=== PATIENT | male | born 1990 | race Caucasian/White ===

== ENCOUNTER 2016-11-13 09:31 | Inpatient (IN) | payer OTHER ==
[~2016-11-13] VITALS: Ht 180.3 cm; Wt 80.5 kg
--- NOTE | ~2016-11-13 | TXPLANREV ---
"PATIENT: TYLER BELL | | [facility] UNIT #: [id number] | [address] AGE/SEX: 26 M : 86 | [address] | [place] [address] ADMIT/REG DATE: 11/13/16 | [facility] ADTC | Treatment Plan/Staffing Review Date: 11/28/16 Treatment plan was reviewed and determined appropriate as written: Yes Treatment plan was reviewed and the following changes/addition/deletions are necessary: Client is to continue working on treatment plan assignments. He is working on feelings letters. Discharge plans were reviewed and determined appropriate as previously documented: No Discharge plans were reviewed and determined to be as follows: Client has signed releases to both the [facility] and the [facility]. He will screen with them this or next week, and will be recommended to attend AA/NA meetings, as well as to get and call a sponsor on a regular basis. Other pertinent issues discussed during this staffing review include: None at this time. Staff Present: Sebastian Carrillo PRIMARY COUNSELOR: MAURISIO Juares Client Signature Counselor Signature Date Time "
--- NOTE | ~2016-11-13 | INDIVTXPLN ---
"PATIENT: TYLER BELL | | [facility] UNIT #: [id number] | [address] AGE/SEX: 26 M : 86 | [address] | [place] [address] ADMIT/REG DATE: 11/13/16 | [facility] | Individualized Treatment Plan Date: 11/29/16 Problem Statement/Issue Identified: Client harbors long standing resentments and will benefit from learning how to let them go, and find positivity in things. Goal: Client will learn how to identify resentments, hurts and fears from his life, and learn how to let go of resentments and find the positive in things. Objectives/Activities to achieve goal: 1. Client is to make a list of 10 greatest hurts, fears or losses, and process them with counselor. Due Date:12/05/16 Complete: Incomplete: 2. Client is to find one positive thing out of each of the events on his list and process them with counselor. Due Date:12/05/16 Complete: Incomplete: 3. Client is to complete the Ending Resentments packet and process it with counselor. Due Date:12/05/16 Complete: Incomplete: Client signature Date Counselor signature Date Outcome/Measurement of Progress Towards Goal: Counselor's signature Date "
--- NOTE | ~2016-11-13 | CLPRLASSUM ---
PATIENT: TYLER BELL | | [facility] UNIT #: [id number] | [address] AGE/SEX: 26 M : 86 | [address] | [place] [address] ADMIT/REG DATE: 11/13/16 | ROOM: [facility] LOC: ADTC | ADTC | Client Problem List/Assessment Summary Date: 11/14/16 Problems identified by the client: Client reported he got into legal problems and was court ordered to come to treatment. Problems identified by significant others: Client does not want any family contacted at this time. Client's Strengths: Client identified his strengths as: He is independent, intelligent, committed and caring. Problem List: Code: T Client continues to use alcohol &/or drugs despite ongoing negative consequences. Code: T Client does not "reach-out to others for help" and instead resumes using alcohol &/or drugs. Code: T Client has learned to deny or stuff feelings; needs to learn to identify and process feelings with safe people to acquire the necessary skills to maintain prison sobriety. Code: T Client needs to identify relapse warning signs and develop a plan to deal with them as they arise. Code: T Client needs to address criminal attitudes and beliefs which leads to substance abuse and crimes. Code Parson: T: to be addressed during course of treatment O: problem noted, expected to resolve itself with abstinence--specific tx plan not required R: problem noted, will be referred upon discharge PRIMARY COUNSELOR: MAURISIO Juares
--- NOTE | ~2016-11-13 | INDIVTXPLN ---
"PATIENT: TYLER BELL | | [facility] UNIT #: [id number] | [address] AGE/SEX: 26 M : 86 | [address] | [place] [address] ADMIT/REG DATE: 11/13/16 | [facility] ADTC | Individualized Treatment Plan Date: 11/16/16 Problem Statement/Issue Identified: Client needs to address criminal attitudes and beliefs which leads to substance abuse and crimes. Goal: Client will learn how to take a look at his criminal thinking and actions, and then learn how to make positive changes in his life. Objectives/Activities to achieve goal: 1. Client is to complete The Con Game and process it with counselor. Due Date:11/23/16 Complete: Incomplete: 2. Client is to complete the My Change Plan packet and process it with counselor. Due Date:11/23/16 Complete: Incomplete: Client signature Date Counselor signature Date Outcome/Measurement of Progress Towards Goal: Counselor's signature Date "
--- NOTE | ~2016-11-13 | INDIVTXPLN ---
"PATIENT: TYLER BELL | | [facility] UNIT #: [id number] | [address] AGE/SEX: 26 M : 86 | [address] | [place] [address] ADMIT/REG DATE: 11/13/16 | ROOM: [facility] LOC: ADTC | ADTC | Individualized Treatment Plan Date: 11/14/16 Problem Statement/Issue Identified: Client continues to use alcohol &/or drugs despite ongoing negative consequences, and he did not reach out to anyone in recovery, so continued to drink/use. Goal: Client will learn how to identify negative consequences of his addiction, attend AA/NA meetings and meet men in recovery. Objectives/Activities to achieve goal: 1. Client is to complete the How to Get Started packet, process it with counselor and selected pages in group. Due Date:11/17/16 Complete: Incomplete: 2. Client is to complete Step 1, process it with counselor and selected pages in group. Due Date:11/21/16 Complete: Incomplete: 3. Client is to attend AA/NA meetings, ask for and get at least 5 names and numbers of men in recovery, and share that list with counselor. Due Date:Ongoing Complete: Incomplete: Client signature Date Counselor signature Date Outcome/Measurement of Progress Towards Goal: Counselor's signature Date "
--- NOTE | ~2016-11-13 | TXPLANREV ---
"PATIENT: TYLER BELL | | [facility] UNIT #: [id number] | [address] AGE/SEX: 26 M : 86 | [address] | [place] [address] ADMIT/REG DATE: 11/13/16 | [facility] | Treatment Plan/Staffing Review Date: 11/21/16 Treatment plan was reviewed and determined appropriate as written: Yes Treatment plan was reviewed and the following changes/addition/deletions are necessary: Client is to continue working on treatment plan assignments. He is finishing up with the Con Game and My Change Plan and will begin writing feelings letters. Discharge plans were reviewed and determined appropriate as previously documented: No Discharge plans were reviewed and determined to be as follows: Client is hoping to get into drug court, so will either continue in outpatient treatment for aftercare, or he may be recommended to go to sober living. Nothing has been staffed or decided, as of yet, other than to attend AA/NA meetings, as well as to get and call a sponsor on a regular basis. Other pertinent issues discussed during this staffing review include: None at this time. Staff Present: Ruthie Carrillo PRIMARY COUNSELOR: MAURISIO Juares Client Signature Counselor Signature Date Time "
--- NOTE | ~2016-11-13 | INDIVTXPLN ---
"PATIENT: TYLER BELL | | [facility] UNIT #: [id number] | [address] AGE/SEX: 26 M : 86 | [address] | [place] [address] ADMIT/REG DATE: 11/13/16 | [facility]: [facility] LOC: ADTC | ADTC | Individualized Treatment Plan Date: 12/05/16 Problem Statement/Issue Identified: Client needs to identify relapse warning signs and develop a plan to deal with them as they arise. Goal: Client will learn to identify relapse triggers and make a plan of how to avoid them. Objectives/Activities to achieve goal: 1. Client is to complete the Relapse Prevention packet and process it with counselor. Due Date:12/13/16 Complete: Incomplete: Client signature Date Counselor signature Date Outcome/Measurement of Progress Towards Goal: Counselor's signature Date "
--- NOTE | ~2016-11-13 | RESCARESUM ---
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 Discharge Diagnosis: Same Goals Achieved: Tyler worked on several things, including step 1, identifying negative consequences of his addiction, gained insight to the disease concept, learned more about himself, worked on feelings and letting go of resentments, making positive changes in his life, and relapse prevention. Continued Obstacles to Sobriety/Relapse Issues: He identified old people, places and things, and not going to AA/NA meetings, not getting into the [facility], not getting a sponsor, and not learning how to work a strong program of recovery. Family Issues Addressed: Tyler worked thru past resentments and wrote and processed feelings letters to various family members. Y Individual Therapy Y Group Therapy Y Educational Series on Substance Abuse N Parents/Significant Others Attended Family Program N Acute Medical Problems During the Course of Treatment N Transferred to Hospital During the Course of Treatment Y Accepting of Substance Abuse Problem N Non-accepting of Substance Abuse Problem N Required Psychological or Psychiatric Consultation During the Course of Treatment Completed AA Step # 1 During This Level of Care Significant Incidences During Treatment: None Reason For Discharge: Y Completed Residential TX Goals and Ready For Next Level of Care N Left Tx Against Medical Advice/Treatment Goals Not Complete N Completed Residential Tx Goals But Refusing Continuing Care Recommendations N Discharged Due to Noncompliance/Treatment Goals not Completed PATIENT: TYLER BELL | | [facility] UNIT #: [id number] | [address] AGE/SEX: 26 M : 86 | [address] | [place] [address] ADMIT/REG DATE: 11/13/16 | ROOM: [facility] LOC: ADTC | ADTC | Summary of Residential Care N Discharged Earlier Than Planned Due to: Continuing Care Plan/Recommendations: N Intensive Partial Care Y Sponsor N Partial Care Y AA Meetings/NA Meetings N Outpatient N Co-dependency Services N Therapeutic Community Y [facility] [address] N Mental Health Therapy N Marriage Counseling N Other Specific Continuing Care Plan: It is recommended that Tyler go directly to the [facility] when they have an opening, follow all rules and regulations of both the [facility] and drug court, begin attending AA/NA meetings on a regular basis and learn how to work a strong program of recovery. PRIMARY COUNSELOR: MAURISIO Juares"
--- NOTE | ~2016-11-13 | TXPLANREV ---
"PATIENT: TYLER BELL | | [facility] UNIT #: [id number] | [address] AGE/SEX: 26 M : 86 | [address] | [place] [address] ADMIT/REG DATE: 11/13/16 | [facility] | Treatment Plan/Staffing Review Date: 12/12/16 Treatment plan was reviewed and determined appropriate as written: Yes Treatment plan was reviewed and the following changes/addition/deletions are necessary: Client is to continue working on Discharge plans were reviewed and determined appropriate as previously documented: No Discharge plans were reviewed and determined to be as follows: Client is trying to get into the [facility], and will be placed on their waiting list. He is to call them on a weekly basis, as well as to provide them with his phone number, so they can contact him, if an opening happens. He will also be recommended to attend AA/NA meetings, as well as to get and call a sponsor on a regular basis. Other pertinent issues discussed during this staffing review include: None at this time. Staff Present: Charity Irving PRIMARY COUNSELOR: MAURISIO Juares Client Signature Counselor Signature Date Time "
--- NOTE | ~2016-11-13 | INDIVTXPLN ---
"PATIENT: TYLER BELL | | [facility] UNIT #: [id number] | [address] AGE/SEX: 26 M : 86 | [address] | [place] [address] ADMIT/REG DATE: 11/13/16 | ROOM: [facility] LOC: ADTC | ADTC | Individualized Treatment Plan Date: 11/21/16 Problem Statement/Issue Identified: Client has learned to deny or stuff feelings; needs to learn to identify and process feelings in a clean/sober manner. Goal: Client will learn how to identify and express feelings in a healthy, clean/sober manner. Objectives/Activities to achieve goal: 1. Client is to write his children a feelings letter, each separately, and process them with counselor. Due Date:11/27/16 Complete: Incomplete: 2. Client is to write his kids' Mom a letter, and process it with counselor. Due Date:11/27/16 Complete: Incomplete: 3. Client is to write his parents and sister, each separately, and process them with counselor. Due Date:11/27/16 Complete: Incomplete: Client signature Date Counselor signature Date Outcome/Measurement of Progress Towards Goal: Counselor's signature Date "
--- NOTE | ~2016-11-13 | TXPLANREV ---
"PATIENT: TYLER BELL | | [facility] UNIT #: [id number] | [address] AGE/SEX: 26 M : 86 | [address] | [place] [address] ADMIT/REG DATE: 11/13/16 | ROOM: [facility] LOC: ADTC | ADTC | Treatment Plan/Staffing Review Date: 12/05/16 Treatment plan was reviewed and determined appropriate as written: Yes Treatment plan was reviewed and the following changes/addition/deletions are necessary: Client is to continue working on treatment plan assignments. He will begin working on relapse prevention. Discharge plans were reviewed and determined appropriate as previously documented: No Discharge plans were reviewed and determined to be as follows: Client has applied to both the [facility] and the [facility]. We will contact them to determine if either has an opening. Other pertinent issues discussed during this staffing review include: None at this time. Staff Present: Phuong Irving PRIMARY COUNSELOR: MAURISIO Juares Client Signature Counselor Signature Date Time "
--- NOTE | 2016-11-13 13:36 | NUR ---
ADMISSION NOTE Rights/Responsibilities: Copy given and explained to client. Signed and accepted by client. Client oriented to physical lay out of the ADTC unit, given Big Book and admission packet. A [place] was assigned.Malik Client is a 25yr old single male. Brought to tx by friend, came from long term in [place], [place] where he lives. He was in long term for 90 days. DOC, meth, last used 08/06/16, seven grams daily. Allergies, none. Meds: Nurse has list. No family participation. Was searched no contraband. Initial paperwork given and guidelines gone over. Doctor has been notified.
--- NOTE | 2016-11-13 13:44 | NUR ---
INITIAL SESSION 1 HR: Clt was oriented to tx plans, schedules and what to expect from tx and this counselor. He advised he is here due to getting into a great deal of legal problems. He has charged in both [place] and [facility]. He is hoping to get into drug court and is here on hemant from care home in [place]. He heard he is to continue working on initial paperwork and will be given STep 1.
--- NOTE | 2016-11-13 16:00 | NUR ---
RECOVERY 101 1 HR/ Clients all shared what they have struggled with in treatment and what helps them. This client shared he is working on finding a concept of a HP, it is his 5th treatment, he felt he was a functioning alcohol/pot user.
--- NOTE | 2016-11-13 18:00 | NUR ---
Education: 1 Hour. Client attended "Forgiveness" lecture presented by staff.
--- NOTE | 2016-11-13 22:52 | NUR ---
tech note: Client was checked into his room & seen by the DR. Client attended onsite NA meeting & gave first intro to his peers.Client was given permission by counselor and he made a call. SE: saw his kids today.
--- NOTE | 2016-11-14 04:32 | NUR ---
tech note: client was motinless in no distress at all bed checks.
--- NOTE | 2016-11-14 13:52 | NUR ---
A.M. 1.5 hr res group/ratio 1:8/ Group heard a grief letter, a getting started, and also discussed shame, guilt, and forgiving self. This client said he has a lot of guilt over the things he has done and he shared some of these things.
--- NOTE | 2016-11-14 15:23 | NUR ---
Tech Note: Client attended programming on Relapse Prevention and is working on Getting Started.
--- NOTE | 2016-11-14 16:25 | NUR ---
Relapse Prevention, 10/02 ration, 1.0 hours, Client attended and participated in relapse prevention education which focused on relapse triggers/issues.
--- NOTE | 2016-11-14 22:17 | NUR ---
TECH NOTE: Client attended Alumni meeting and on-site AA meeting. SE: education
--- NOTE | 2016-11-14 22:54 | NUR ---
EDUCATION NOTE: 1HR lecture on Shame given by counselor
--- NOTE | 2016-11-15 04:39 | NUR ---
Bed note: Client was in bed with eyes closed and no distress at all bed checks.
--- NOTE | 2016-11-15 10:01 | NUR ---
Tech note: Client is working on Step 1
--- NOTE | 2016-11-15 12:43 | NUR ---
Education note: Client attended speaker Iker Ardon
--- NOTE | 2016-11-15 12:48 | NUR ---
RES GROUP 1.5 HRS. RATIO 09/19. Topics today were assignments shared, addiction itself, craving, and spirituality. This client was quiet but when prompted he shared that he is struggling with spirituality, and is really trying this time not to be a know it all, as he has a habit of thinking he knows everything. We processed a lot on spirituality. He says this time is the first time he really wants to quit and out there he wanted to and couldn't so this time he has some fear.
--- NOTE | 2016-11-15 14:58 | HP ---
ADMIT: 11/13/2016 RM/LOC: Marilee [facility] MR#: [id number] [facility] [address] [place], [place] [address] TYLER BELL [address] [place] [address] [facility] History and Physical SEX: M AGE: 25 : 1990 DATE OF SERVICE: This is for his admission to the residential care program at the [facility] CHIEF COMPLAINT: Drug problem with recent legal difficulties. CLINICAL HISTORY: The patient is a 26-year-old white male, admitted to the residential care program at the [facility] for treatment of his methamphetamine/stimulant use disorder, severe; opioid use disorder, severe; sedative hypnotic use disorder, severe. The patient readily admits that he is a drug addict and comes to treatment after having spent the past 3 months in fdc after he was arrested in [facility] for charges of burglary and possession of burglary tools. He has been sitting in fdc from 08/07/2016 until his admission here today on 11/13/2016. He is trying to get accepted into Drug Court. The patient notes that his current drug of choice is methamphetamine. He first started using methamphetamine at the age of 13 and used meth heavily until he went to long-term in 2011. He notes he recently relapsed in January of 2016 and started using meth again after not having used for over 4 years. The patient notes that he has been using heavily either smoking it, snorting it, or using it IV. IV is his root of choice. He has been using anywhere from an 8 ball to two 8 balls a day, using heavily on a daily basis. In addition to the daily methamphetamine use, he has also been using heroin for the past 2-3 months prior to being arrested in July. He started using heroin in March of 2016 and used it up until his arrest on 08/07/2016, noting that he was using about a gram of heroin a week, usually mixing it with the meth and using the two together and either used the heroin IV or snorted. In addition to heroin, he was also using prescription opiates, primarily fentanyl patches, using 100 mcg patches and ingesting the gel from the patches on a regular basis whenever he could get them. In addition to the fentanyl patches, he was also using pain pills when they were available. He also was abusing prescription Xanax, taking at times 8-10 mg per day. He notes that he would get a 60 count bottle of Xanax. He would buy an entire prescription from a friend or free methamphetamine. He notes that 60 Xanax would last him about a week. He was abusing meth heavily from January of 2016, heroin from March to July 2016, as well as the other prescription opiates. Those were his drugs of choice until he was arrested. Since he has been in fdc, he has been clean, he has not used any drugs since 08/07/2016 when he was arrested. He notes alcohol has never been his thing. He drinks on a very limited basis. He has used pot off and on since age 13, smokes it when it is available or around, sometimes will use it while help take the edge off if he has been using meth heavily, but has not wanted his preferred drugs. He has also abused cocaine when available. He was using cocaine in addition to the methamphetamine this past summer prior to his arrest. He has experimented with almost all other drugs that are out there including hallucinogens, having tried acid, mushrooms, ketamine, and anything else that he could usually find. He also has abused several other types of prescription drugs, but his drugs of choice are methamphetamine. As noted, he did go for at least 4 years without using any meth and had used meth on a very limited basis from the time he got out of treatment and 2006. He had tried to stay away from meth at that time, ADMIT: 11/13/2016 RM/LOC: JoseRobbi [facility] MR#: [id number] [address] [address] TYLER BELL [facility] [place] [address] [facility] History and Physical SEX: M AGE: 25 : 1990 but as noted relapsed last January and his life quickly has spiraled out of control. He has current charges pending on burglary and possession of burglary tools as well as possession of methamphetamine, criminal messages, possession of pot and other drug paraphernalia. He did spend 18 months in long-term from 2011 through 2012 for past drug-related charges. He comes to treatment at this time directly from fdc and is in the process of trying to get into the Drug Court System. PAST MEDICAL HISTORY: Recent hospitalizations; the patient was hospitalized in 2006 after having severe withdrawal symptoms. The patient notes he had surgery on his right hand in 2007. He had 2 psychiatric admissions; one in 2010, another in 2013, for depression and suicidal thoughts. He was EPC'd in 2010 to [facility]. In 2013, he was EPC'd to [facility]. The patient notes that this is his fifth time in treatment. He did treatment here at [place] in 2003 and in 2006. In 2006, he also went to the [facility] program in [place]. In 2010, he did the [facility] treatment program. CURRENT MEDICATIONS: He is presently on: 1. BuSpar 15 mg twice daily. 2. Zoloft 100 mg daily. 3. Zyprexa 20 mg one at bedtime. The patient notes he was started on these medications while in fdc and they have been working well for his racing thoughts and anxiety. ALLERGIES: NO KNOWN ALLERGIES. MEDICAL ILLNESSES: He denies any ongoing chronic medical problems other than for psychiatric difficulties including chronic anxiety and drug-induced psychosis. SOCIAL HISTORY: The patient is currently homeless and has been confined to fdc for the past 3 months. He had been living alone in [place] after his significant other threw him out when she found out he had relapsed last summer. 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 He notes he has been with his current significant other for almost 9 years. They have 2 children; a son aged 7 and a daughter aged 6. The patient notes that he dropped out of high school due to his drug use. Eventually, he did get his GED. FAMILY HISTORY: Significant in that there is a strong family history of chemical dependency in his family. Both of his parents are recovering alcoholics. His sister is an alcoholic and drug addict. His sister is currently in recovery. REVIEW OF SYSTEMS: A 12-point review of systems is essentially negative except for his long-standing substance abuse and chemical dependency. He ADMIT: 11/13/2016 RM/LOC: A.Tyler [facility] MR#: [id number] [address] [address] TYLER BELL [address] [place], [place] [address] [id number] [facility] History and Physical SEX: M AGE: 25 : 1990 denies any significant cardiac, pulmonary, GI, , musculoskeletal, or neurologic problems. He notes that he is a smoker and that he would like to quit. Currently, he has been smoking about a pack a day up until the time he was in fdc. He did not smoke at all while in fdc for the past 3 months. He notes he has been tested in the past because of his IV drug use for HIV and hep C and has been negative. Remainder of his review of systems is negative. PHYSICAL EXAMINATION: VITAL SIGNS: Temp is 97.6, pulse 88, respirations 20, blood pressure 128/76, height 5 feet 11 inches. His weight is 176 pounds. GENERAL: The patient is a 26-year-old white male, who appears his stated age. He is in no acute distress. HEENT: Exam is negative. Ears are clear. Nose and throat noninflamed. Oropharynx unremarkable. Dentition is in poor repair. NECK: Supple. No cervical adenopathy. Thyroid not enlarged. LUNGS: Noted to be clear. HEART: Has regular rhythm without murmur. ABDOMEN: Soft, nontender. No masses or organomegaly. Bowel sounds are normoactive. GENITALIA: Normal male. No hernias. EXTREMITIES: Normal to gross exam. No clubbing or cyanosis. No peripheral edema. INTEGUMENT: No significant rashes. NEUROLOGIC: No focal deficits. Cranial nerves II through XII are grossly intact. MENTAL STATUS EXAMINATION: He is pleasant and cooperative. His affect is appropriate. He has no bizarre ideation or delusions at this time. He does admit to racing thoughts and some bizarre ideation. He admits to past depression and suicidal thoughts but denies any depressive symptoms or suicidal ideation at this time. He appears to be of average intelligence. His insight is limited. Judgment is also limited. ASSESSMENT: At the time of admission: 1. Stimulant/methamphetamine use disorder, severe. 2. Opioid use disorder, severe. 3. Sedative hypnotic use disorder, severe. 4. Cannabis use disorder, severe. 5. Alcohol use disorder, mild. 6. Chronic anxiety disorder. 7. Drug-induced psychosis. 8. Post-traumatic stress disorder by history. 9. Tobacco use disorder. ADMIT: 11/13/2016 RM/LOC: Marilee [facility] MR#: [id number] [address] [place] [id number] TYLER BELL [address] [place] [address] [facility] History and Physical SEX: M AGE: 25 : 1990 PLAN: Plan is to admit the patient to the residential care program with tentative discharge date of 12/11/2016. Upon completion of treatment, he would like to move back in with his significant other when he is clean and sober and then do outpatient aftercare followup here at [place]. However, I do feel he would strongly benefit from going to a skilled nursing house, would benefit from the structure and supportive environment of a skilled nursing house. At this time, we are going to continue him on his Zyprexa for his mind racing and drug-induced psychosis, continue his BuSpar for his chronic anxiety. I did switch him from sertraline to Wellbutrin XL 300 mg daily to see if this will help deter some of his cravings. We will anticipate discharge on 12/11/2016. Salazar Klein MD/ alison JOB #: [id number] CC: Salazar Klein MD, Attending Physician NO FAMILY PHYSICIAN, Family Physician
--- NOTE | 2016-11-15 16:07 | NUR ---
SPIRITUAL EDUCATION 1 HR. Topic today was on how addiction is a disease of body mind and spirit and how the Steps fit in treating the SPIRIT. We also talked about ways to spirituality, payoffs, and how spirituality is related to both addiction and recovery.
--- NOTE | 2016-11-15 18:14 | NUR ---
Education: 1 Hour. Client attended "Boundaries" lecture presented by staff.
--- NOTE | 2016-11-15 22:02 | NUR ---
Tech note : Client played pictionary for rec and attended an onsite NA meeting. SE: AM group
--- NOTE | 2016-11-16 05:17 | NUR ---
tech note: client was motionless in no distress at all bed checks.
--- NOTE | 2016-11-16 09:55 | NUR ---
FAMILY CONTACT: Clt does not want any family involved at this point.
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
--- NOTE | 2016-11-16 11:30 | NUR ---
AM GRP 1.5 HRS, Ratio 1:11/ Clt was mostly quiet thru-out grp, offering no feedback. When prompted, stated he has a lot going on in his head, but he's here to learn and listen.
--- NOTE | 2016-11-16 15:26 | NUR ---
IS 1 HR: José shared that he is struggling really bd and wants to get high. We discussed ways to help with that, including talking about it, but he stated it's hard to talk to anyone here about it, as most everyone talks about using. He heard to journal, and he stated writing doesn't help much, so he heard to ask God to take it from him, but he stated he doesn't believe in God either. we discussed josé's lack of belief, of which he advised he wants to believe in something, just isn't sure what, so was encouraged to go to the chapel and simply ask for the ability to be open minded. He agreed to do so.
--- NOTE | 2016-11-16 15:40 | NUR ---
Tech Note: Client participated in Spiritual Enrichment in the morning and went for an outdoor walk in the afternoon. Client stated that he is working on Step One.
--- NOTE | 2016-11-16 16:32 | NUR ---
Education 1 Hour: Client heard a presentaion on "Wellness in Recovery."
--- NOTE | 2016-11-16 23:02 | NUR ---
Tech note: Client worked on craft projects for the dance for rec and attended AA meeting SE:lorrie
--- NOTE | 2016-11-17 00:07 | NUR ---
Education note: Clients watched a movie on "my attitude' by Andi Smith.
--- NOTE | 2016-11-17 04:51 | NUR ---
Bed note; client was motionlees, with eyes closed at all bed checks.
--- NOTE | 2016-11-17 11:30 | NUR ---
Group 1.5 hr/ 11:1 Clients all got into discussion about how they found spirituality or struggle with HP concepts and a peer shared GS packet. This client did share his GS packet, did good job sharing and did bring up his dad was arrogant and he doesn't like him, he did like a quality assurance coach, and shared alot about feeling uncomfortable in his own skin, insecure, and in an identity crisis now. He says he was a Partyer, using was cool, was selfish, and is very Obsessive with anything he does. Client struggles with a HP, "I'm not a Cheondoism" and closest to a presybeterian would be nature and vikings. He shared his spouse hated his use, plans to live with her and their kids when gets out, they are just friends now. Client shared he never had a desire to quit til this past 3 months. He did say he has PTSD and depression, and hopes to address his issues.
--- NOTE | 2016-11-17 14:00 | NUR ---
PEER REVIEWS 1.25 HRS: Clt participated in peer reviews and took a risk to give open and honest feedback to those receiving a review.
--- NOTE | 2016-11-17 16:06 | NUR ---
Tech Note: Client went with group for outside walk and watched "Marijuana", by Fredo Smith, for education. Clt is working on [employer].
--- NOTE | 2016-11-17 23:34 | NUR ---
Tech Note: Client read guidelines with peers. Client attended A.A. SE: Group
--- NOTE | 2016-11-18 05:30 | NUR ---
Bed Note: Client was motionless with eyes closed at all bed checks.
--- NOTE | 2016-11-18 15:38 | NUR ---
Tech Note: Client working on [employer].
--- NOTE | 2016-11-18 20:26 | NUR ---
Tech Note: Client played a game for rec. They also attended the A.A.Meeting at [facility] and [place]. SE: Morning Meeting
--- NOTE | 2016-11-19 05:27 | NUR ---
Bed Note: Client was motionless with eyes closed at all bed checks.
--- NOTE | 2016-11-19 15:14 | NUR ---
Tech Note: Client participated in Big Book Study. Client stated that he is working on, "Con Game."
--- NOTE | 2016-11-19 23:28 | NUR ---
Client attended A.A.Panel and helped with community clean. SE: Visitation
--- NOTE | 2016-11-20 05:00 | NUR ---
Bed Note: Client was motionless with eyes closed at all bed checks.
--- NOTE | 2016-11-20 10:07 | NUR ---
Tech note: Client is working on Change plan
--- NOTE | 2016-11-20 11:30 | NUR ---
AM GRP 1.5 HRS, Ratio 1:11/ Clt offered great feedback to peers. He is generally quiet, and just sits motionless and emotionless, but today had great feedback.
--- NOTE | 2016-11-20 14:36 | NUR ---
Education note: Client attended speaker for education Romel Gama
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
--- NOTE | 2016-11-20 22:35 | NUR ---
TECH NOTE: Client played Catch Phrase in REC, and attended NA meeting. SE: meeting with counselor
--- NOTE | 2016-11-20 23:56 | NUR ---
Education: 1 Hour. Client attended "Adult Children" presentation given by staff.
--- NOTE | 2016-11-21 05:21 | NUR ---
BED NOTE: Client was in bed, motionless with eyes closed all three bed checks.
--- NOTE | 2016-11-21 11:29 | NUR ---
Meliza res group/ratio 1:10/ Group assignments shared were step one and feelings letters. This client shared pages 10-11 and identified stealing from many family members among other things. He is no longer with his kids mom but they are good friends and she brings him money and cigarettes up here.
--- NOTE | 2016-11-21 16:03 | NUR ---
Tech Note: Client attended speaker meeting, presented by [employer]al Services, and Relapse Prevention education. Client is currently working on his Change Plan.
--- NOTE | 2016-11-21 16:25 | NUR ---
Relapse Prevention; 1.0 hours; Client attended and actively participated in relapse prevention which focused on compulsive behaviors and relapse.
--- NOTE | 2016-11-21 23:20 | NUR ---
Education note: 1 hour lecture given by counselor on "Self Esteem"
--- NOTE | 2016-11-21 23:31 | NUR ---
Tech note: Client worked on projects for the alumni rd for rec and attended AA meeting SEF:EDDIE
--- NOTE | 2016-11-22 04:10 | NUR ---
BED NOTE: Client was in bed, motionless with eyes closed all three bed checks.
--- NOTE | 2016-11-22 10:48 | NUR ---
Tech note: Client is working on Change plan
--- NOTE | 2016-11-22 12:03 | NUR ---
AM GROUP 9:09/10.5 HR: Client and peers participated as three peers processed issues and assignments. Much of the focus became how to rebuild a healthy and realistic value system after compromised original values to such a degree in active addiction. This client wanted feedback on his counselor's recommendation that he go to a [facility] following treatment vs his want to go home to his two young sons. Client wanted to make it seem like it was all about his sons and their needs, right after he had admitted to the group that he is totally self-centered, even when he isn't using. Client heard that the benefits of going to a [facility] out-weigh the negatives and if he is willing to go to any lengths to be successful in his sobriety, his sons will forever be grateful even if they don't fully understand today.
--- NOTE | 2016-11-22 13:12 | NUR ---
Education note: Client attended speaker Quintin for education today.
--- NOTE | 2016-11-22 19:57 | NUR ---
SPIRITUaL EDUCATION 1 HR. Today we discussed difference between spirituality and zoroastrianism, and then played a spiritual challenge game where group discussed thought provoking questions on spirituality and the meaning.
--- NOTE | 2016-11-22 22:41 | NUR ---
EDUCATION NOTE: 1 HR Counselor gave a lecture on Disease Concept
--- NOTE | 2016-11-22 23:30 | NUR ---
tech note: client played Pictionary for recreation & attended onsite NA mtg. Client wanted information about medications he's taking,tech referred him to talk to RN. SE: ALONSO
--- NOTE | 2016-11-23 04:09 | NUR ---
BED NOTE: Client was in bed, motionless with eyes closed all three bed checks.
--- NOTE | 2016-11-23 08:15 | NUR ---
Step ed./1 hr/ Focus was on step 7 "Humbly asked him to remove our shortcomings". Had them complete some questions on paper then discussed. This client participated. He shared what is different for him is he is getting in touch with a higher power, something he has not done in the past.
--- NOTE | 2016-11-23 11:44 | NUR ---
Group 1.5 hrs 2:20 Client sat quietly for most of the group. Client participated when asked what he was grateful for. Student: Manasa Johnson
--- NOTE | 2016-11-23 15:25 | NUR ---
Tech Note: Client participated in Spiritual Enrichment in the morning and went for an outdoor walk in the afternoon. Client stated that he is working on writing Feelings Letters.
--- NOTE | 2016-11-23 22:07 | NUR ---
EDUCATION NOTE 1HR: Recovery committee presented information on recovery
--- NOTE | 2016-11-23 22:10 | NUR ---
EDUCATION NOTE 1HR: Clients watched Fredo Smith video on Behavior
--- NOTE | 2016-11-23 22:35 | NUR ---
TECH NOTE: Client helped by doing crafts for the dance for REC, and attended AA meeting.
--- NOTE | 2016-11-24 04:39 | NUR ---
Bed note: client was in bed moitionless with eyes closed and no distress at all bed checks.
--- NOTE | 2016-11-24 11:51 | NUR ---
Group 1.5 Hr Ratio 1:11/Topics today were orientating a new member to group rules and goals and a couple getting started packets. Client shared some feedback but was mostly quiet but did appear to be paying attention.
--- NOTE | 2016-11-24 14:24 | NUR ---
IVikash. 1 Hr/Client shared feelings letters to his kids mom nd kids anzaynabhey were good but lacked feelings. Said he would work on them. Client has a lot of fear about not being able to stop and struggles dealing with peers that don't take constructive critacisum.
--- NOTE | 2016-11-24 16:00 | NUR ---
Tech Note: Client watched video (The Enablers) and is working on the Big Book.
--- NOTE | 2016-11-24 22:09 | NUR ---
Tech Note : Client worked crafts and projects for the dance. Client watched TV.
--- NOTE | 2016-11-25 04:35 | NUR ---
Bed note: Client was in bed with eyes closed and no distress at all bed checks.
--- NOTE | 2016-11-25 17:49 | NUR ---
Tech Note: Client attended N.A. Panel and is working on FL's. Client also had visitor.
--- NOTE | 2016-11-25 18:59 | NUR ---
tech note: client attended offsite Alumni Dance.
--- NOTE | 2016-11-26 04:50 | NUR ---
BED NOTE: Client was in bed, motionless with eyes closed all three bed checks.
--- NOTE | 2016-11-26 16:34 | NUR ---
Tech Note: Client participated in Big Book Study in the morning and went for a walk in the afternoon. Client stated that he is working on writing Feelings Letters.
--- NOTE | 2016-11-26 23:02 | NUR ---
tech note: Client attended AA Panel & participated in Community Clean.Client watched tv. SE: Good Day.
--- NOTE | 2016-11-27 04:11 | NUR ---
bed note: client was in bed with eyes closed and no distress at all bed checks.
--- NOTE | 2016-11-27 10:39 | NUR ---
Tech notes: Client is working on Fl's.
--- NOTE | 2016-11-27 12:00 | NUR ---
Peer Review 1.5 hr/ Clients all participated in giving peer review to 4 peers on what they need to work on.
--- NOTE | 2016-11-27 12:53 | NUR ---
Education note: Client attended educational sulma Engel on Marijuana.
--- NOTE | 2016-11-27 15:00 | NUR ---
IS 1 HR: Clt shared that he made the decision he needs to go to either the or [place]. He knows he has to get away from his kids' Mom, but he struggles knowing he can't be there for his kids at night either. We discussed how important it is for him to do well, and life will fall into place and the kids will be better off. He shared his letter to their Mom, and it sounds like he has feelings, and he's afraid to say goodbye, but she has problems of her own too. Clt is to continue working on feelings letters.
--- NOTE | 2016-11-27 16:47 | NUR ---
Peer Review 1.5 hr/ Clients all participated in giving peer review to 4 peers on what they need to work on.
--- NOTE | 2016-11-27 23:38 | NUR ---
Tech Note: Client attended N.A.Meeting. Client also went on walk for rec. SE: speaking with counselor
--- NOTE | 2016-11-27 23:57 | NUR ---
Education Note: 1 hour lecture on communication given by counselor.
--- NOTE | 2016-11-28 04:11 | NUR ---
Bed Note: client was in bed with eyes closed and no distress at all bed checks.
--- NOTE | 2016-11-28 14:23 | NUR ---
A.M. 1.5 hr group/ratio 1:8/ Group heard a feelings letter. Discussion was on healthy verses unhealthy relationships and how addiction affects your children. This client shared feelings letter to his ex. He said he is not sure if he has a resentment towards her but thinks not but he still feels hurt that she seems to have sex with whoever and it does not bother her and this is somthing he cant do. He feels sex is special and he plans on continuing to have sex with her even though he is not ready to get back into a relationship with her. He was cautioned on this and he heard could cause relapse. He had sex with her before coming here.
--- NOTE | 2016-11-28 17:05 | NUR ---
Relapse Prevention, 09/28, 1.0 hours, Client attended and actively participated in relapse prevention which focused on completing the quiz What Do You Know About Relapse?
--- NOTE | 2016-11-28 17:32 | NUR ---
ech Note: Client is working on Feelings Letters.
--- NOTE | 2016-11-28 23:14 | NUR ---
Tech Note: Client took walk around park for rec. Client attended A.A.Meeting. SE: Group
--- NOTE | 2016-11-28 23:24 | NUR ---
Education Note: Client attended a one hour session with [facility] on HIV/AIDS/STD's for education.
--- NOTE | 2016-11-29 04:46 | NUR ---
Bed Note: client was in bed with eyes closed and no distress at all bed checks.
--- NOTE | 2016-11-29 10:26 | NUR ---
Tech notes: Client is working on BB
--- NOTE | 2016-11-29 12:48 | NUR ---
Group 1.5 Hr Ratio 1:9/Topics today were orientating two new clients to group rules and goals, feelings letters and a Getting Started Packet. Client shared feelings letters to his kids and a letter to his dad that started out to be a feelings letter and turned out to be a vent letter. Client shared he has let go of the resentment but it appeared he still has work to do by the tone of his voice and sayin he does not want anything to do with his dad or sister.
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
--- NOTE | 2016-11-29 15:38 | NUR ---
SPIRITUAL EDUCATION 1 hr. Today we oriented newcomers, discussed Starfish story then reached out to newcomers writing letters of encouragment and welcome, and using word art to make Big Book Bookmarks as welcoming gift.
--- NOTE | 2016-11-29 19:08 | NUR ---
Education: 1 Hour. Client attended Step 2 & Step 3 lecture given by staff.
--- NOTE | 2016-11-29 23:05 | NUR ---
Tech note : Client went for a walk around the park for rec and attended an onsite NA meeting. SE: Group
--- NOTE | 2016-11-30 05:14 | NUR ---
tech note: client was motionless in no distress at all bed checks.
--- NOTE | 2016-11-30 11:53 | NUR ---
Group 1.5 Hr Ratio 1:11/Topics were a feelings letter which lead to difficult dads. Client shared very little but did appear to be paying attention.
--- NOTE | 2016-11-30 13:45 | NUR ---
Tech Note: Client participated in Spiritual Enrichment in the morning and went for an outdoor walk in the afternoon. Client stated that he is working on, "Resentments."
--- NOTE | 2016-11-30 14:16 | NUR ---
Education 1 Hour: Client heard a lecture and saw a demonstration on "Infection Prevention."
--- NOTE | 2016-11-30 15:31 | NUR ---
REFERRAL: Clt had an appt w/ the [facility] and all info was faxed to the , who will do a screening on 12/05.
--- NOTE | 2016-11-30 17:00 | NUR ---
FAMILY EDUCATION 3 HRS. Client attended alone and took part in the discussion on the disease concept. He shared that he experienced drug induced psychosis.
--- NOTE | 2016-11-30 23:03 | NUR ---
Tech note:client took walk for rec, participated in guided meditation and attended AA mtg. SE:got sponsor today
--- NOTE | 2016-12-01 04:48 | NUR ---
Bed Note: Client was motionless with eyes closed at all bed checks.
--- NOTE | 2016-12-01 12:00 | NUR ---
Group 1.5 Hr Ratio 1:12/Topics today were orientating a new member to group, a step one and what some peers are here for. Client shared how he could relate to what peers were sharing bur did not share what he is here for.
--- NOTE | 2016-12-01 12:38 | NUR ---
Peer Review 1.5 hr/ Clients all participated in giving peer review to 4 peers on what they need to work on.
--- NOTE | 2016-12-01 13:38 | NUR ---
Tech Note: Client watched Predator Pt.2 video and is working on a Resentment pkt.
--- NOTE | 2016-12-01 23:44 | NUR ---
TECH NOTE: Client participated in reading guidelines, attended optional offsite AA meeting, and watched tv/movies SE: worked on resentment packet
--- NOTE | 2016-12-02 04:07 | NUR ---
BED NOTE: Client was in bed, motionless, with eyes closed all bed checks.
--- NOTE | 2016-12-02 15:53 | NUR ---
Tech Note: Client attended an off-site AA meeting in the morning. client stated that he his working on, "Resentment."
--- NOTE | 2016-12-02 19:48 | NUR ---
TECH NOTE: Client played [employer] for REC, attended offsite AA meeting and watched tv/movies. SE: yolanda
--- NOTE | 2016-12-03 04:11 | NUR ---
Bed Note: Clt lay motionless in bed with eyes closed showing no distress at all bed checks.
--- NOTE | 2016-12-03 16:02 | NUR ---
Tech Note: Client read chapter 4 for Big Book study. Clt is working on Resentment pkt.
--- NOTE | 2016-12-03 22:10 | NUR ---
Tech Note : Client listened to an AA panel member share his experience, strength and hope, watched tv and participated in community clean.
--- NOTE | 2016-12-04 04:49 | NUR ---
Bed Note: Clt lay motionless in bed with eyes closed showing no distress at all bed checks.
--- NOTE | 2016-12-04 10:20 | NUR ---
Tech notes: Client is working on BB
--- NOTE | 2016-12-04 11:30 | NUR ---
Group 1.5 hr/ 22:2 Clients all participated in Sculpturing today by role-playing, giving feedback and relating. This client was attentive and all did discuss relapse can happen to anyone, and how to prevent it.
--- NOTE | 2016-12-04 13:32 | NUR ---
Educational Note: Client watched a video "Inhalent Abuse"
--- NOTE | 2016-12-04 17:00 | NUR ---
FAMILY EDUCATION 3 HRS. Client attended alone and took part in the discussion on the family roles, codependency and detachment. He related to some of all of the roles.
--- NOTE | 2016-12-04 18:21 | NUR ---
EDUCATION NOTE: 1HR Lecture on Feelings given by counselor.
--- NOTE | 2016-12-04 20:52 | NUR ---
FAMILY GROUP 4:/ HR: Client, peers and attending family members heard two peers and family members process FEELINGS LETTERS. Much of the focus was on dealing with "double trouble" meaning substance abuse and significant mental health issues, i.e. depression. Those attending heard that his has been an age old controversy between the villa of mental health vs substance abuse and which has to be treated first to make progress. Staff suggested that when active addiction is in place, medications and/or counseling are not effective. Some clients identified their need to rebuild trust with their families and willingness to do this. This client attended alone but was active with personal sharing and appropriate feedback. He discouraged a younger male about [facility] stating, "It's bad man." He also talked about his own need for medication (anti-depressant) which he said was prescribed when he was in [facility].
--- NOTE | 2016-12-04 22:40 | NUR ---
Tech note: client was in family
--- NOTE | 2016-12-05 04:38 | NUR ---
bed note:client was in bed with eyes closed and no distress at all bed checks.
--- NOTE | 2016-12-05 14:29 | NUR ---
Tech Note: Client participated in light stretching in the morning and went for an outdoor walk in the afternoon. Client stated that he is working on reading the Big Book.
--- NOTE | 2016-12-05 14:46 | NUR ---
Education 0.5 Hour: Client watched the video, "How to Sabotage Your Treatment."
--- NOTE | 2016-12-05 14:55 | NUR ---
A.M. 1.5 hr group/ratio 1:9/ Group heard some feelings letters, grief packet, and a getting started assignment. Discussed fear of making friends when they have left in the past, importants of getting a sponsor, and having cravings. This client was distracted and counselor asked where his mind was. He said he has been jonsing real bad so has been praying. I asked if he has talked to others about this. I suggested while in group he get out of himself and focus on who is shareing and relate etc. He got defensive when peer suggested he talk to god and Krish and he said he doesnt believe in that quaker stuff. I said maybe he needs to surrender and he said he knows he has done this. He got very defensive and 2 group members rescued him.
--- NOTE | 2016-12-05 18:52 | NUR ---
Education: 1 Hour. Staff gave lecture on Step 1.
--- NOTE | 2016-12-05 23:39 | NUR ---
tech note: client played Pictionary for recreation,attended Guided Meditation & onsite AA meeting. Redirected by tech when seen running to the tech station to be first in line for medications. SE: All day.
--- NOTE | 2016-12-06 04:43 | NUR ---
tech note: Client was motionless in no distress at all bed checks.
--- NOTE | 2016-12-06 10:07 | NUR ---
Tech note: Client is working on BB and mtg with shree
--- NOTE | 2016-12-06 12:58 | NUR ---
Education note: Client attended educational speaker "Kit" on cross addiction.
--- NOTE | 2016-12-06 13:05 | NUR ---
Group 1.5 hours 1:10 Clients orientated a new peer to group rules and purpose of group. Client shared assignment from Step 1 packet and received feedback from peers. Client shared about working on resentments and becoming a different man than his father was. Student: Manasa Johnson
--- NOTE | 2016-12-06 16:05 | NUR ---
IS 1 HR: José is worried about court, about calling his atty, about what's going to happen, and was informed he's losing valuable tx time worrying about things out of his control. We discussed how important it is to stay in today, but he voiced how hard it is to not get anxious about things. He is to pray and work on staying in today.
--- NOTE | 2016-12-06 18:21 | NUR ---
Education: 1 Hour. Client attended Relapse Prevention lecture given by staff.
--- NOTE | 2016-12-06 18:24 | NUR ---
SPIRITUAL EDUCATION 1 HR. ORIENTED NEWCOMERS, DISCUSSED ADDICTIVE SELF VS SPIRITUAL SELF THEN DEPICTED IN ARTWORK.
--- NOTE | 2016-12-06 22:37 | NUR ---
tech note: Client played Catch Phrase for recreation & attended onsite NA meeting. Client was redirected by tech during recreation for comment he made about cutting his wrists. Client was late for the client meeting. SE: NA.
--- NOTE | 2016-12-07 04:23 | NUR ---
Bed Note: Clt lay motionless in bed with eyes closed showing no distress at all bed checks.
--- NOTE | 2016-12-07 11:30 | NUR ---
AM GRP 1.5 HRS, Ratio 1:11/ Clt participated in grp discussion on various topics, including control, which he is struggling with greatly, wanting to know many questions, wanting to call his atty, etc. He heard he has 10 minutes a day to worry about all of it, and the other times he must trust that it's all going to work out.
--- NOTE | 2016-12-07 14:35 | NUR ---
Tech Note: Client participated in light stretching for morning exercise and met with a cordage sales representative from a [facility] in the afternoon. Client stated that he is working on, "Relapse Prevention."
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
--- NOTE | 2016-12-07 16:17 | NUR ---
Education 1 Hour: Client watched the video, "Feelings" by Father Deniz.
--- NOTE | 2016-12-07 19:01 | NUR ---
Education 1HR: Clt watched video entitled "Say Yes To Life" by father Zac Fuentesoth.
--- NOTE | 2016-12-07 22:47 | NUR ---
Tech Note: Clt played a game for recreation, attended GM and onsite AA mtg. Clt stated concerns about new admit using. SE was AM mtg.
--- NOTE | 2016-12-08 04:42 | NUR ---
BED NOTE: Client was in bed, motionless with eyes closed all bed checks
--- NOTE | 2016-12-08 10:26 | NUR ---
Tech Note: Client is working on Relapse Prevention.
--- NOTE | 2016-12-08 11:30 | NUR ---
GROUP 1.5 HRS 1:10 Group discussion included HOW TO GET STARTED IN TREATMENT assignment as well as issues of cravings and ambivalence. This client shared about ongoing vergara with cravings. He reports he is using the Serenity Prayer as suggested.
--- NOTE | 2016-12-08 13:53 | NUR ---
Late Note for 12/05/16 due to illness: Relapse Prevention, 09/28, 1.0 hours, Client attended and actively participated in relapse prevention educatio which focused on internal and external triggers.
--- NOTE | 2016-12-08 15:00 | NUR ---
Peer review 1 hr/this client recieved a peer review and peers said he has anger,is a perfectionist, is uptight, overthingks, lives in his head, needs to pick what side of the fence he wants, goofs around, has fear, is stubborn and issolates.
--- NOTE | 2016-12-08 21:42 | NUR ---
Tech note : Client talked on the phone and watched tv. He walked to an offsite AA meeting.
--- NOTE | 2016-12-09 04:43 | NUR ---
Bed note: Client was in bed with eyes closed and no distress at all bed checks.
--- NOTE | 2016-12-09 12:12 | NUR ---
IS 1 HR: Clt shared that he has been able to stay out of his head more in the past couple days, altho this entire week was rough for him. He craved, attempted to pray and is uncomfortable doing so, but is keeping at it. He will d/c on Sunday and go directly to court. He wants some type of letter saying he finished tx and what's in store for his aftercare plan. Will write and send w/ him, and until then, is to work on his relapse prevention.
--- NOTE | 2016-12-09 14:59 | NUR ---
Tech note: Client attended NA panel and is working on Relapse Prevention and had visit.
--- NOTE | 2016-12-09 20:46 | NUR ---
Tech note: Client worked on Ricoed projects or watched basketball game for rec attended offsite AA meeting SE:family visits
--- NOTE | 2016-12-10 04:50 | NUR ---
Bed note: client was in bed with eyes closed and no distress at all bed checks
--- NOTE | 2016-12-10 15:30 | NUR ---
TECH NOTE: Client participated in big book study, went on a walk, and watched tv/movies.
--- NOTE | 2016-12-10 19:00 | NUR ---
tech note:Attended AA panel, participated in community clean, watched tv and movies
--- NOTE | 2016-12-11 04:17 | NUR ---
tech note: Client was motionless in no distress at all bed checks.
--- NOTE | 2016-12-11 09:48 | NUR ---
Tech note: Client is working on Relapse Prevention
--- NOTE | 2016-12-11 11:30 | NUR ---
Group 1.5 hr/ 10:1 Client did give good feedback and related to facing using thoughts daily and his bottom was so bad that suicide seemed better than even getting high so he just remembers that to help him each day.
--- NOTE | 2016-12-11 13:00 | NUR ---
Education note: Client attended education speaker Love on tobacco
--- NOTE | 2016-12-11 16:00 | NUR ---
Recovery 101 1 hr/ Clients all shared their experiences that have helped them the most for their recovery past and present. This client shared this is his 5th treatment, now knows he doesn't know so works at being teachable, has sponsor and HP but is just starting to pray and it seems to make a difference already.
--- NOTE | 2016-12-11 20:28 | NUR ---
Education 1HR: Clt attended lecture given by counselor on Forgiveness.
--- NOTE | 2016-12-11 22:08 | NUR ---
Tech note : Client participated in rec by making God box's. Client attended an offsite NA meeting.
--- NOTE | 2016-12-12 04:07 | NUR ---
Bed Note: Clt lay motionless in bed with eyes closed showing no distress at all bed checks.
--- NOTE | 2016-12-12 12:51 | NUR ---
A.M. 1.5 hr res group/ratio 1:10/ Group heard a getting started and a vent letter. Discussion focused on resentments and how to let go and grief. This client gave feedback and related to feeling mad at dad and how he works on this is by writing it down and putting it in the god box.
--- NOTE | 2016-12-12 15:08 | NUR ---
Tech Note: Client participated in light stretching for morning exercise and went on an outdoor walk in the afternoon. Client stated that he is working on, "Relapse Prevention."
--- NOTE | 2016-12-12 15:31 | NUR ---
Education 0.5 hour: Client attended a session on sexual health topics.
--- NOTE | 2016-12-12 16:00 | NUR ---
FINAL SESSION 1 HR: clt reported the maint thing he learned this time, that was lacking in previous tx's is spirituality. He advised he went to the chapel a great deal, prayed and things started happening that he didn't see before. He completed the continued care plan and he did the survey. Clt was given a coin and completed thru tx.
--- NOTE | 2016-12-12 16:32 | NUR ---
Relapse Prevention, 09/28, 1.0 hours, Client attended and actively participated in relapse prevention education which focused on early warnning signs of relapse.
--- NOTE | 2016-12-12 22:52 | NUR ---
Tech note : client participated in rec by decorating for Jabier[employer]. Client went to the alumni meeting and attended an onsite AA meeting.
--- NOTE | 2016-12-13 05:14 | NUR ---
Bed note : Client was motionless with eyes closed at all bed checks.
--- NOTE | 2016-12-13 10:08 | NUR ---
Tech Notes: Client is working on BB
--- NOTE | 2016-12-13 11:58 | NUR ---
PEER REVIEW 22:1/1.5 HR: Client and peers participated in peer review. Client did well in expressing & providing appropriate feedback.
--- NOTE | 2016-12-13 12:48 | NUR ---
Education note: Client attended education by [facility]
--- NOTE | 2016-12-13 13:49 | NUR ---
DISCHARGE NOTE Client left tx with parents and all personal belongings were sent with. Discharge instructions gone over and copy given.
--- NOTE | 2017-01-10 09:02 | DS ---
ADMIT: 11/13/2016 RM/LOC: [facility] MR#: [id number] [address] [facility] [address] [place] [id number] [address] [place], [place] [id number] [facility] General Discharge Summary SEX: M AGE: 25 : 1990 ADMISSION DATE: 11/13/2016 DISCHARGE DATE: 12/13/2016 ADMITTING DIAGNOSIS: As per history and physical. FINAL DIAGNOSES: As follows: 1. Stimulant/methamphetamine use disorder, severe. 2. Opioid use disorder, severe. 3. Sedative hypnotic use disorder, severe. 4. Cannabis use disorder, severe. 5. Alcohol use disorder, mild. 6. Chronic anxiety disorder. 7. Drug-induced psychosis. 8. Post-traumatic stress disorder by history. 9. Tobacco use disorder. COMPLICATIONS: None. OPERATIONS: None. CLINICAL HISTORY: The patient is a 26-year-old white male, admitted to the residential care program with [facility] for treatment of his methamphetamine/stimulant use disorder, opioid use disorder, sedative hypnotic use disorder as well as other polysubstance dependency. The patient readily admits that he is a drug addict and comes to treatment after having spent the past 3 months in longterm. He has an extensive legal history related to his ongoing substance abuse and chemical dependency. For details of his past drug use and ongoing chemical dependency as well as multiple legal consequences, please see the clinical history portion of his dictated history and physical. Please also see dictated history and physical for past medical history and pertinent physical exam findings. LABORATORY AND X-RAY SUMMARY FROM THIS ADMISSION: None indicated, none performed during this hospital stay. HOSPITAL COURSE: The patient was admitted to the residential care program and assigned to his primary counselor, Rachael Jj. He remained in treatment from 11/13/2016 through 12/13/2016. While in treatment, he participated in individual therapy and group therapy. He was given the educational series on substance abuse and worked on many of these assignments while in treatment. While in treatment, he was accepting of his substance abuse problem. He was able to complete step 1 of AA during this level of care. The patient attended family education and family group sessions, but none of his family participated. While in treatment, he had no significant medical issues. He worked on several things in treatment including identifying the negative consequences of his addiction. He gained insight into the disease concept of addiction. He was able to accept his powerlessness over alcohol and drugs. He worked on feelings and letting go of resentments and trying to make some positive changes in his lifestyle. He worked on relapse prevention and was ADMIT: 11/13/2016 RM/LOC: [facility] MR#: [id number] [address] [id number] [address] [place] [address] [facility] General Discharge Summary SEX: M AGE: 25 : 1990 able to recognize obstacles to his sobriety. He ultimately completed his residential treatment goals and was felt to be ready for the next level of care. It was recommended upon discharge, Tyler should go directly to the [facility]. They had a bed open and available for him. He should reside at the [facility] for 6 to 9 months until dismissed with staff approval. He also needs to comply with all of his Drug Court stipulations. He should attend 4 to 5 AA or NA meetings per week and maintain regular contact with his sponsor. He needs to work a strong program of recovery and adhere to all the guidelines and rules at the [facility] [place]. MEDICATIONS: At discharge were to include: 1. BuSpar 15 mg b.i.d. 2. Wellbutrin SR 100 mg 2 tablets twice a day. 3. Zyprexa 10 mg 2 tablets at bedtime. 4. Protonix 40 mg daily. He is to follow up with [facility] for ongoing management of his psychotropic medications. CONDITION AT DISCHARGE: Stable. PROGNOSIS: [facility]edar to be good if he follows through on the extended prison house stay. Salazar Klein MD/ alison JOB #: [id number] CC: Salazar Klein MD, Attending Physician NO FAMILY PHYSICIAN, Family Physician
== END 2016-12-13 14:05 | disposition home or self-care (01) | DRG 895 ==
LOC: ADTC 09:31
PROVIDERS: ADMIT Family Medicine
PROC: HZ43ZZZ Group Counseling for Substance Abuse Treatment, 12-Step (ICD-10-PCS; principal; 2016-11-13)
PROC: HZ34ZZZ Individual Counseling for Substance Abuse Treatment, Interpersonal (ICD-10-PCS; principal; 2016-11-13)
PROC: 3E0234Z Introduction of Serum, Toxoid and Vaccine into Muscle, Percutaneous Approach (ICD-10-PCS; 2016-11-23)
DX: F15.20 Other stimulant dependence, uncomplicated (principal); F13.20 Sedative, hypnotic or anxiolytic dependence, uncomplicated; F11.20 Opioid dependence, uncomplicated; F19.259 Other psychoactive substance dependence with psychoactive substance-induced psychotic disorder, unspecified; F12.20 Cannabis dependence, uncomplicated; F10.10 Alcohol abuse, uncomplicated; F41.9 Anxiety disorder, unspecified; F17.210 Nicotine dependence, cigarettes, uncomplicated; Z65.2 Problems related to release from prison; Z72.89 Other problems related to lifestyle; Z63.72 Alcoholism and drug addiction in family; Z23 Encounter for immunization